=== PATIENT | female | born 1940 | race Two or more races ===

== ENCOUNTER 2022-03-24 18:48 | Inpatient (IN) | payer OTHER ==
[~2022-03-24] VITALS: Ht 149.9 cm; Wt 55.1 kg
[2022-03-24 20:29] LABS: Basophils # (auto) 0.1 10 ^3/uL (0-0.2); Basophils % (auto) 0.8 % (0.0-2.0); Eosinophils # (auto) 0.1 10 ^3/uL (0-0.8); Eosinophils % (auto) 0.9 % (0.0-7.0); Hematocrit 27.3 % (36.0-46.0); Hemoglobin 8.8 g/dL (12.2-16.2); Lymphocytes % (auto) 33.1 % (10.0-50.0); Mean Corpuscular Hemoglobin 32.3 pg (28.0-32.0); Mean Corpuscular Hgb Conc. 32.3 g/dL (32.0-36.0); Mean Corpuscular Volume 100.1 fL (80.0-100.0); Monocytes # (auto) 0.5 10 ^3/uL (0-1.3); Monocytes % (auto) 5.7 % (0.0-12.0); Neutrophils # (auto) 5.3 10 ^3/uL (1.6-8.6); Neutrophils % (auto) 59.5 % (37.0-80.0); Nucleated Red Blood Cells % 0.1 %; Red Blood Cells 2.73 10^6/uL (4.0-5.20); Red Cell Distribution Width 15.5 % (11.8-14.3)
[2022-03-24 20:42] LABS: Alanine Aminotransferase 16 U/L (13-56); Albumin 3.7 g/dL (3.4-5.0); Anion Gap 11 (5-15); Aspartate Aminotransferase 7 U/L (15-37); BUN/Creatinine Ratio 14.7; Blood Urea Nitrogen 16 mg/dL (7-18); Calcium 8.2 mg/dL (8.5-10.1); Carbon Dioxide 23 mmol/L (21-32); Chloride 106 mmol/L (98-107); GFR African American 62 mL/min; GFR Non-African American 51 mL/min; Glucose 141 mg/dL (74-106); Potassium 4.3 mmol/L (3.5-5.1); Sodium 140 mmol/L (136-145)
[2022-03-24 20:45] LABS: Alkaline Phosphatase 77 U/L (45-117); Bilirubin, Total 0.6 mg/dL (0.2-1.0); Total Protein 6.4 g/dL (6.4-8.2)
[2022-03-24] MEDS ORDERED: DEXTROSE (50%) 50ML SYRG IV PRN (22:15)
[2022-03-24] MEDS ORDERED: ONDANSETRON HCL 4 MG/2 ML VIAL IV PRN (22:15)
[2022-03-24] MEDS ORDERED: ACETAMINOPHEN 325 MG TAB PO PRN (22:15)
[2022-03-24] MEDS ORDERED: DOCUSATE SOD 100 MG CAP PO PRN (22:15)
[2022-03-24] MEDS ORDERED: MORPHINE SULFATE INJ 2 MG/ml SYRG IV PRN (23:30)
[2022-03-24] MEDS ORDERED: NITROGLYCERIN 0.4 MG SL TAB SL PRN (23:30)
[2022-03-25] MEDS: SODIUM CHLOR 0.9% PF (SALINE LOCK) 10ML VIAL/SYR IV SCH ×3 (00:37→22:58)
[2022-03-25 03:42] LABS: Basophils # (auto) 0 10 ^3/uL (0-0.2); Basophils % (auto) 0.6 % (0.0-2.0); Eosinophils # (auto) 0.1 10 ^3/uL (0-0.8); Eosinophils % (auto) 1.2 % (0.0-7.0); Hemoglobin 8.5 g/dL (12.2-16.2); Lymphocytes # (auto) 3.2 10 ^3/uL (0.4-5.4); Lymphocytes % (auto) 40.5 % (10.0-50.0); Mean Corpuscular Hemoglobin 31.9 pg (28.0-32.0); Mean Corpuscular Hgb Conc. 33.9 g/dL (32.0-36.0); Mean Corpuscular Volume 94.1 fL (80.0-100.0); Monocytes # (auto) 0.5 10 ^3/uL (0-1.3); Monocytes % (auto) 6.8 % (0.0-12.0); Neutrophils # (auto) 4.1 10 ^3/uL (1.6-8.6); Neutrophils % (auto) 50.9 % (37.0-80.0); Nucleated Red Blood Cells % 0.1 %; Red Blood Cells 2.66 10^6/uL (4.0-5.20); Red Cell Distribution Width 15.2 % (11.8-14.3)
[2022-03-25 04:04] LABS: Albumin 3.2 g/dL (3.4-5.0); Calcium 7.9 mg/dL (8.5-10.1); Potassium 3.4 mmol/L (3.5-5.1)
[2022-03-25 04:06] LABS: BUN/Creatinine Ratio 17.6
[2022-03-25 04:09] LABS: Bilirubin, Total 0.6 mg/dL (0.2-1.0); Total Protein 5.6 g/dL (6.4-8.2)
[2022-03-25] MEDS: ACCU-CHEK COMFORT CURVE STRIP VI SCH ×4 (08:58→22:57)
[2022-03-25] MEDS: InsuLIN REG 1unit/0.01ml Soln (100units/ml) SC SCH ×4 (08:59→23:25)
[2022-03-25] MEDS ORDERED: APIXABAN 5 MG TAB PO SCH (10:00)
[2022-03-25] MEDS ORDERED: POTASSIUM CHL 20 Meq TABLET PO ONE (10:15)
[2022-03-25] MEDS ORDERED: ASPirin 81 mg TAB PO ONE (10:30)
[2022-03-25 10:45] LABS: Magnesium 1.8 mg/dL (1.6-2.6)
[2022-03-25] MEDS: ENOXAPARIN SOD 60 MG/0.6 ML SYRINGE SC SCH ×2 (11:08→22:57)
[2022-03-25] MEDS: ADENOSINE 50 MG in GIVE UN-DILUTED 0 ML IV ONE ×2 (12:15→14:11)
[2022-03-25] MEDS: ATORVASTATIN 20 MG TAB PO SCH (22:57)
[2022-03-25 23:00] VITALS: BP 138/64
[2022-03-25 23:09] VITALS: BP 153/69
[2022-03-25 23:10] VITALS: BP 138/64
[2022-03-25] MEDS ORDERED: BENA-27 (23:23)
[2022-03-25] MEDS ORDERED: METF-371 PO (23:23)
[2022-03-25] MEDS ORDERED: FAMO-12 PO (23:23)
[2022-03-25] MEDS ORDERED: AMLO-489 PO (23:23)
[2022-03-25] MEDS ORDERED: APIX5TAB PO (23:23)
[2022-03-25] MEDS ORDERED: ATOR40TA52 PO (23:23)
[2022-03-25] MEDS ORDERED: CAR125T OR (23:23)
[2022-03-26 05:00] VITALS: BP 152/67
[2022-03-26] MEDS: SODIUM CHLOR 0.9% PF (SALINE LOCK) 10ML VIAL/SYR IV SCH ×3 (05:47→22:33)
[2022-03-26] MEDS: ACCU-CHEK COMFORT CURVE STRIP VI SCH ×4 (05:47→22:34)
[2022-03-26] MEDS: HYDROcodone-ACET 5/325MG TAB PO PRN ×2 (05:47→18:28)
[2022-03-26] MEDS: InsuLIN REG 1unit/0.01ml Soln (100units/ml) SC SCH ×4 (06:26→22:42)
[2022-03-26 08:00] VITALS: BP 122/63
[2022-03-26 09:00] VITALS: BP 122/63
[2022-03-26] MEDS: ASPirin 81 mg TAB PO SCH (10:02)
[2022-03-26] MEDS: ENOXAPARIN SOD 60 MG/0.6 ML SYRINGE SC SCH ×2 (10:02→22:35)
[2022-03-26 13:00] VITALS: BP_SYST 126; BP_SYST 143; BP_DIAS 66; BP_DIAS 70
[2022-03-26 21:44] VITALS: BP 151/63
[2022-03-26] MEDS: ATORVASTATIN 20 MG TAB PO SCH (22:34)
[2022-03-27] MEDS: HYDROcodone-ACET 5/325MG TAB PO PRN (03:59)
[2022-03-27 04:44] VITALS: BP 158/74
[2022-03-27 05:20] VITALS: BP 148/69
[2022-03-27] MEDS: SODIUM CHLOR 0.9% PF (SALINE LOCK) 10ML VIAL/SYR IV SCH ×3 (06:40→21:25)
[2022-03-27] MEDS: ACCU-CHEK COMFORT CURVE STRIP VI SCH ×4 (06:40→21:25)
[2022-03-27] MEDS: InsuLIN REG 1unit/0.01ml Soln (100units/ml) SC SCH ×4 (06:40→21:29)
[2022-03-27 08:33] VITALS: BP 139/70
[2022-03-27] MEDS: ASPirin 81 mg TAB PO SCH (09:24)
[2022-03-27] MEDS: ENOXAPARIN SOD 60 MG/0.6 ML SYRINGE SC SCH ×2 (09:24→21:21)
[2022-03-27 12:42] VITALS: BP 137/92
[2022-03-27 17:00] VITALS: BP 154/77
[2022-03-27] MEDS: ATORVASTATIN 20 MG TAB PO SCH (21:21)
[2022-03-27 21:40] VITALS: BP 148/65
[2022-03-28 04:34] VITALS: BP 133/64
[2022-03-28] MEDS: SODIUM CHLOR 0.9% PF (SALINE LOCK) 10ML VIAL/SYR IV SCH ×3 (06:17→23:26)
[2022-03-28] MEDS: ACCU-CHEK COMFORT CURVE STRIP VI SCH ×4 (06:17→23:26)
[2022-03-28] MEDS: InsuLIN REG 1unit/0.01ml Soln (100units/ml) SC SCH ×4 (06:18→23:47)
[2022-03-28 08:00] VITALS: BP 127/56
[2022-03-28] MEDS: ENOXAPARIN SOD 60 MG/0.6 ML SYRINGE SC SCH ×2 (09:08→23:26)
[2022-03-28] MEDS: ASPirin 81 mg TAB PO SCH (09:09)
[2022-03-28] MEDS: HYDROcodone-ACET 5/325MG TAB PO PRN (09:10)
[2022-03-28] MEDS ORDERED: MAGNESIUM SULFATE 1GM/100ML 100 ML IV ONE (09:30)
[2022-03-28 12:00] VITALS: BP 125/60
[2022-03-28 16:00] VITALS: BP 135/60
[2022-03-28 22:00] VITALS: BP 136/57
[2022-03-28] MEDS: ATORVASTATIN 20 MG TAB PO SCH (23:25)
[2022-03-29 05:00] VITALS: BP 140/60
[2022-03-29] MEDS: HYDROcodone-ACET 5/325MG TAB PO PRN ×2 (05:11→09:14)
[2022-03-29] MEDS: SODIUM CHLOR 0.9% PF (SALINE LOCK) 10ML VIAL/SYR IV SCH (06:21)
[2022-03-29] MEDS: ACCU-CHEK COMFORT CURVE STRIP VI SCH (06:22)
[2022-03-29] MEDS: InsuLIN REG 1unit/0.01ml Soln (100units/ml) SC SCH (06:23)
[2022-03-29 09:06] VITALS: BP 112/58
[2022-03-29] MEDS: ENOXAPARIN SOD 60 MG/0.6 ML SYRINGE SC SCH (09:13)
[2022-03-29] MEDS: ASPirin 81 mg TAB PO SCH (09:14)
[2022-03-29] MEDS ORDERED: ASPI-498 PO (10:47)
[2022-03-29] MEDS ORDERED: CIPR-173 PO (10:47)
== END 2022-03-29 13:38 | disposition home or self-care (01) | DRG 291 ==
LOC: EDBD 18:48 → ER 18:48 → TELE 23:27 → TELE-WESTW 03-25 21:38
PROVIDERS: ADMIT Nurse Practitioner Family; ATTEND Family Medicine
DX: I11.0 Hypertensive heart disease with heart failure (principal); I50.43 Acute on chronic combined systolic (congestive) and diastolic (congestive) heart failure; E87.6 Hypokalemia; E11.9 Type 2 diabetes mellitus without complications; E78.00 Pure hypercholesterolemia, unspecified; F10.10 Alcohol abuse, uncomplicated; I25.10 Atherosclerotic heart disease of native coronary artery without angina pectoris; Z20.822 Contact with and (suspected) exposure to COVID-19; Z79.01 Long term (current) use of anticoagulants; Z86.718 Personal history of other venous thrombosis and embolism; Z86.73 Personal history of transient ischemic attack (TIA), and cerebral infarction without residual deficits; Z95.810 Presence of automatic (implantable) cardiac defibrillator
CPT/HCPCS: 36415; 71045; 78452; 80053; 80061; 82962; 83036; 83735; 83880; 84443; 84484; 85025; 86850; 86900; 86901; 87426; 93005; 93017; 93306; 96365; 96372; G0378; J0153; J1815